=== PATIENT | male | born 1935 | race Caucasian/White ===

== ENCOUNTER 2023-07-30 14:20 | Inpatient (IN) | payer OTHER, SELFPAY ==
[2023-07-30] VITALS (13 sets, daily range): BP systolic 87–109; BP diastolic 35–71; BMI 24.5
--- NOTE | 2023-07-30 09:03 | ED.GENMED ---
History of Present Illness
General
Chief Complaint: Back Pain
Time Seen by Provider: 07/30/23 08:52
Travel History
Have you had any contact with someone who has COVID-19?: No
Do you have any symptoms of coronavirus? Fever > 100 degrees, chills, cough, shortness of breath, sore throat, loss of taste or smell, muscle aches, or headache?: No
History of Present Illness
History of Present Illness:
79-year-old male with history of COPD, coronary artery disease, hypertension, and hyperlipidemia presents to the emergency department for evaluation of generalized weakness. He has fallen several times in the past few days. He is primarily
complaining of right hip and buttock pain after his most recent fall. Son notes that he had 1 episode of vomiting last night and dark urine as of this morning. Patient denies any pain or difficulty breathing. No reported fevers or URI symptoms
recently
Past History
Past History
ED Past Medical History: CAD, COPD, CVA (left sided weakness), GERD, HTN, Hypercholesterolemia, NIDDM, Other (Hepatitis) and Other (PAT, coronary artery disease, hyperlipidemia, skin grafting with faye in 1969)
ED Past Surgical History: Cardiac (CABG), Orthopedic (Hand surgery) and Other (cataracts)
Social History
Tobacco: Former smoker
Alcohol: Occasional
Drug: None
Personal:
Living: with family
Family History
Family History: Hypertension
Review of Systems
Review of Systems
Allergies reviewed?: Yes
All Other Systems: ROS reviewed and negative except as documented in HPI and ROS
Phy Exam
Physical Exam
Physical Exam:
GEN: Well appearing, NAD, WDWN
Eyes: PERRLA, EOMs intact, no scleral icterus
HENT: NCAT, oral mucosa dry
Lungs: Normal respiratory effort, crackles at the right base
Cardiac: RRR, no M/R/G, no peripheral edema. Radial pulses 2+ bilat
Abdomen: S, NT, ND, NABS, no masses or hepatosplenomegaly
Neuro: AO x 3, no focal deficits to BUE/BLE, normal sensation throughout
MSK: No gross deformity or ecchymosis. Bilateral hip range of motion is normal. Reproducible tenderness to the right gluteal region, no deformities
Skin: No rashes, petechiae. Normal color, no pallor or jaundice.
Psych: Calm, cooperative, proper hygiene
Course
Orders/Labs/Results
Orders:
Orders
07/30/23 09:02
CR Hip - RT w/wo Pel 2-3 Vw* Urgent
Comment:
Reason For Exam: fall, gluteal pain
Include a pelvis x-ray?: Yes
07/30/23 09:15
COVID-19 Antigen Urgent
Source: Nasal Swab
Complete Blood Count/With Diff Urgent
Lactic Acid Q4H
Comment: CANCEL 2nd LACTIC ACID IF 1st LACTIC ACID IS LESS THAN 2
Urinalysis Reflex To Culture Urgent
Date Specimen was Collected: 07/30/23
Time Specimen was Collected: 09:07
Urine Microscopic Reflex Cult Urgent
07/30/23 09:18
Prothrombin Time Urgent
Blood Culture Q30M
UMA Source: Blood/Venous
Specimen Description:
Blood Culture Q30M
UMA Source: Blood/Venous
Specimen Description:
07/30/23 09:56
0.9% Sodium Chloride 1000 ml [Nss] 1,000 ml IV BOLUS
07/30/23 10:01
Basic Metabolic Panel Urgent
07/30/23 11:07
CT Chest/abd/pel W Iv Cont Urgent
Comment:
Reason For Exam: sepsis unclear origin
07/30/23 11:36
LevoFLOXacin 750 MG/150 ML [Levaquin] 750 mg in 150 ml IV NOW
07/30/23 12:18
Lactic Acid Q4H
Comment: CANCEL 2nd LACTIC ACID IF 1st LACTIC ACID IS LESS THAN 2
07/30/23 12:22
Potassium Urgent
07/30/23 12:45
0.9% Sodium Chloride 1000 ml [Nss] 1,000 ml IV BOLUS
07/30/23 13:14
Add On- LAB Routine
Tests Added?: LFTs
07/30/23 13:32
Admit/Transfer Patient As Directed
Co-Sign Provider:
Level of Care: Inpatient admission
Assign to:: IMU- Intermediate Care
Physician / Group: stu armando
Diagnosis: sepsis
Reason for Hospitalization: sepsis
Expected length of stay greater than two midnights?: Yes
ELOS- Estimated Length of Stay in days: 3
I certify the patient meets the requirements for IP care: Yes
07/30/23 13:33
Code Status As Directed
Resuscitation Status: Full Code
07/30/23 13:41
Influenza A+B Rapid Molecular Stat
UMA Source: Nasal Swab
Specimen Description:
07/30/23 13:48
NORepinephrine 4 MG/250 ML [Levophed] 4 mg in 250 ml IV PER PROTOCOL
Initial dose in mcg/min, then titrate:: 2
Titrate to keep:: SBP > 90 mmHg
Titrate by mcg/min:: 1-2 mcg/min
Frequency of titrations (minutes):: 5
Maximum dose in ICU in mcg/min:: 30
Maximum dose in IMU in mcg/min:: 8
Maximum dose in IVU in mcg/min:: 4
Begin to taper infusion when:: Remained at goal for 4hrs
Taper by mcg/min:: 1-2 mcg/min
Frequency of taper (minutes) if patient maintains goal:: 30
Taper to off?: Yes
If infusion off & no longer maintaining goal:: Contact Provider
07/30/23 13:52
RSV [Respiratory Syncytial Virus] Stat
UMA Source: Nasal Swab
Specimen Description:
Date Specimen was Collected: 07/30/23
Time Specimen was Collected: 13:51
07/30/23 14:11
B-Hydroxybutyrate Urgent
Comprehensive Metabolic Panel Urgent
Direct Bilirubin Urgent
Procalcitonin Urgent
Abnormal Lab Results
07/30/23 07/30/23 07/30/23
09:15 10:01 12:18
WBC 20.4 H 10^3/uL
(4.8-10.8)
RBC 4.36 L 10^6/uL
(4.70-6.10)
MCH 31.4 H pg
(27.0-31.0)
MPV 11.6 H fL
(7.4-10.4)
Abs Immat Gran (auto) 0.1 H 10^3/uL
(0-0.05)
Absolute Neuts (auto) 19.6 H 10^3/uL
(1.4-6.5)
Absolute Lymphs (auto) 0.2 L 10^3/uL
(1.2-3.4)
Neutrophils % 95.9 H %
(42.2-75.2)
Lymphocytes % 0.9 L %
(20.5-51.1)
Carbon Dioxide 20 L mmol/L
(22-30)
BUN 23 H mg/dl
(9-20)
Glucose 257 H mg/dl
(70-99)
Lactic Acid 3.3 H mmol/L 3.1 H mmol/L
(0.7-2.0) (0.7-2.0)
Urine Ketones Trace A
(Negative)
Urine Bilirubin 2+ A
(Negative)
Urine Urobilinogen 2+ A
(Neg - 1+)
Leukocyte Esterase Rfl Trace A
(Negative)
07/30/23 09:15
Vital Signs
Initial and Last Documented VS:
Initial Vital Signs
Temp Pulse Resp BP Pulse Ox
97.9 F 72 18 96/42 92
07/30/23 08:47 07/30/23 08:47 07/30/23 08:47 07/30/23 08:47 07/30/23 08:47
Last Documented Vital Signs
Temp Pulse Resp BP Pulse Ox
97.9 F 87 26 90/40 98
07/30/23 08:47 07/30/23 13:00 07/30/23 10:01 07/30/23 13:00 07/30/23 13:00
MDM/Problems Addressed
MDM/Problems Addressed:
79-year-old male presenting with generalized weakness and multiple falls. In regards to the fall imaging the pelvis shows no evidence for hip fracture or pelvic ring fracture. He has noted to be tachycardic and hypotensive on arrival although
appears clinically well. Started on IV fluids, CT of the chest abdomen pelvis was obtained to clarify source of sepsis given that the patient is minimally symptomatic, lower lobe infiltrates noted most likely on the basis of pneumonia given the
patient's adventitious lung sounds in addition to leukocytosis. Patient will be admitted for broad-spectrum IV antibiotics and further management
*Critical Care Note
Total Time (30-74mins, 75-104mins- exclusive of procedures): 35 minutes
comment:
Critical care time: 35 minutes
Critical care time was exclusive of: Separately billable procedures, treating other patients, and teaching time
Critical care was necessary to treat or prevent imminent or life-threatening deterioration of the following conditions: Lactic acidosis/severe sepsis
Critical care time spent personally by me on the following activities:
[x] Review of old charts
[x] Obtaining history from patient or surrogate
[x] Ordering and review of the laboratory studies
[x] Ordering and review of radiographic studies
[x] Ordering and performing treatments and interventions
[x] Patient patient's response to treatment
[x] Development of treatment plan with patient or surrogate
ED Attending Note
-
Portions of this chart may have been created with voice recognition software.� Occasional wrong word or��sound alike� substitutions may have occurred due to the inherent limitations of voice recognition software.
Discharge Plan
Departure
Patient Disposition: Admit
Date of Disposition: 07/30/23
Time of Disposition: 12:47
Admit to: IMU
Presentation/result/management discussed w/ accepting MD/DO: Hospitalist
Discharge Problem:
Severe sepsis, Community acquired pneumonia
Interventions
Interventions:
*Risk Screen - Suicide Last Done: 07/30/23 08:47
*General Assessment Last Done: 07/30/23 08:47
*Neglect/Abuse Screening Last Done: 07/30/23 08:47
*ED COVID-19 Vaccine History Last Done: 07/30/23 08:47
ED-Musculoskeletal Assessment Last Done: 07/30/23 10:26
[2023-07-30 09:46] LABS: % Basophils 0.4 % (0-2); % Eosinophils 0.2 % (0-6); % Immature Granulocytes 0.5 % (0-0.5); % Lymphocytes 0.9 % (20.5-51.1); % Monocytes 2.1 % (1.7-9.3); % Neutrophils 95.9 % (42.2-75.2); Absolute Basophils 0.1 10^3/uL (0-0.2); Absolute Immature Granulocytes 0.1 10^3/uL (0-0.05); Absolute Lymphocytes 0.2 10^3/uL (1.2-3.4); Absolute Monocytes 0.4 10^3/uL (0.1-0.6); Absolute Neutrophils 19.6 10^3/uL (1.4-6.5); Hematocrit 40.5 % (39.0-52.0); Hemoglobin 13.7 g/dL (13.0-18.0); Mean Corp Hgb Conc. 33.8 g/dL (33.0-37.0); Mean Corpuscular Hgb 31.4 pg (27.0-31.0); Mean Corpuscular Volume 92.9 fL (80.0-94.0); Mean Platelet Volume 11.6 fL (7.4-10.4); Nucleated Red Blood Cells % 0 % (-); Platelet Count 280 10^3/uL (130-400); Red Blood Cell Count 4.36 10^6/uL (4.70-6.10); White Blood Cell Count 20.4 10^3/uL (4.8-10.8)
[2023-07-30 09:53] LABS: PT 12.4 Sec (11.4-14.6)
[2023-07-30 10:04] LABS: Lactic Acid 3.3 mmol/L (0.7-2.0)
[2023-07-30 10:06] LABS: COVID-19 Antigen Negative (Negative)
[2023-07-30] MEDS: NSS 1000 IV ×3 (10:42→14:56)
[2023-07-30 10:43] LABS: Urine Albumin Trace (Neg - Trace); Urine Bilirubin 2+ (Negative); Urine Character Clear (Clear); Urine Color Brown; Urine Glucose Negative (Negative); Urine Ketone Trace (Negative); Urine Leukocyte Trace (Negative); Urine Nitrite Negative (Negative); Urine Occult Blood Negative (Negative); Urine Urobilinogen 2+ (Neg - 1+)
[2023-07-30 11:20] LABS: Urine Red Blood Cell 0-2 /HPF (0-2); Urine Squamous Cell 0-2 /LPF (Few)
[2023-07-30 11:23] LABS: Blood Urea Nitrogen 23 mg/dl (9-20); Calcium 9.1 mg/dl (8.4-10.2); Carbon Dioxide 20 mmol/L (22-30); Chloride 104 mmol/L (98-107); Estimated Creatinine Clearance 44 ml/min; Glucose 257 mg/dl (70-99); Sodium 136 mmol/L (135-145); eGFR 58.17
[2023-07-30] MEDS: LEVAQUIN 150 IV (11:41)
--- NOTE | 2023-07-30 12:58 | HPS.HSE ---
Addendum entered and electronically signed by Desmond Hernandez DO 07/30/23 14:06:
Patient seen and examined. Discussed with SET DECORATOR Salvatore, and I agree with her note.
Gen-AAOx3, NAD
HEENT-NC, AT, anicteric, clear oral mm
Neck-supple
CV-reg, no M, +S1/S2
Lungs-mild bilateral rhonchi
Abd-soft, NT, ND
Ext-no edema
Musculoskeletal-no cyanosis, clubbing
Skin-warm and dry
Neuro-grossly non-focal
Psych-calm, cooperative
Septic shock - differential diagnosis includes pneumonia versus other. No evidence of UTI. Check procalcitonin. Check blood cultures. COVID-19 negative. Check influenza, RSV. Admit to IMU, start Levophed for hypotension.
CT of chest, abdomen, pelvis shows no acute disease in the abdomen pelvis. Questionable pneumonitis versus pneumonia versus atelectasis in the lungs.
Patient complaining of new onset rust colored sputum over the past 48 hours. Denies shortness of breath or dyspnea on exertion. Denies wheezing. Denies sick contacts.
Suspect he had an episode of post tussive vomiting. Currently denies nausea.
Lactic acidosis noted.
COPD -unclear if acute COPD exacerbation, not wheezing on exam. Does have mild rhonchi. Continue oxygen, inhalers. Add steroids if he develops wheezing.
DM2 with hyperglycemia -suspect mild DKA. Anion gap 12. Urine ketones positive. Check beta hydroxybutyrate. Hemoglobin A1c was 6.1% in May. On metformin at home. Use sliding scale insulin for now. Hold metformin.
CAD/CABG -stable.
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 Continue Plavix.
Essential hypertension -currently hypotensive. Hold losartan.
Hyperlipidemia
Moderate aortic stenosis
GERD/Villafana's esophagus
80% surface area faye -due to work-related accident in the early .
COVID-19 infection - June 2023.
Full code
Ambulatory dysfunction -uses a walker at home. Consult PT/OT.
Original Note:
Family Physician
-
Family Physician: * NONE
Chief Complaint
-
weakness
fall
cough
History of Present Illness
79-year-old male with history of COPD, coronary artery disease, hypertension, and hyperlipidemia presents to the emergency department for evaluation of generalized weakness. He fell twice since . On he fell backwards and landed on
his buttocks. Patient stated he was very dizzy and lightheaded. On Tuesday he fell in between shower and toilet. Denied hitting his head. Patient complaining of right hip pain since the fall. patient denied loss the level of consciousness.
Denied headache. Patient denied chest pain or short of breath. Stated chronic cough which got little worse with the dark brown sputum. Denied abdominal pain. Denied diarrhea. Stated vomited twice. His urine was dark today. Denied dysuria
hematuria.
On arrival noted elevated WBCs, soft BP, elevated lactic acid. CT chest with pneumonia. Patient received a dose of Levaquin in the ER. Fluids in ER. Blood culture sent from ER. Admitting for further management
Medical History
Past Medical History
Past Medical History: Reports Other
Additional Past Medical History:
CAD, COPD, CVA (left sided weakness), GERD, HTN, Hypercholesterolemia, NIDDM, Other (Hepatitis) and Other (PAT, coronary artery disease, hyperlipidemia, skin grafting with faye in 1970
Past Surgical History: Reports Other
Additional Past Surgical History:
Coronary artery bypass graft
Hand surgery
Cataract surgery
Social History
Tobacco: Former Smoker
Alcohol: None
Drug: None
Personal: Single
Living: With Family
Family History
Family History: Not pertinent
Allergies / Home Medications
Allergies reflects when Allergies were last updated in [employer].
Home Medications with original date entered in [employer]
Allergy/Medication List:
Allergies
Allergy/AdvReac Type Severity Reaction Status Date / Time
bacitracin Allergy patient is Verified 12/01/22 20:39
unaware of
this
allergy
cephalexin Allergy patient is Verified 12/01/22 20:39
unaware of
this allerg
Cephalosporins Allergy patient is Verified 12/01/22 20:39
unaware of
this allerg
chloramphenicol Allergy patient is Verified 12/01/22 20:39
unaware of
this allerg
Penicillins Allergy rash? Verified 12/01/22 20:39
polymyxin B Allergy patient is Verified 12/01/22 20:39
unaware of
this allerg
chloramycine Allergy Rash Uncoded 12/01/22 20:39
Home Medications
clopidogrel 75 mg tablet 75 mg PO DAILY 04/16/20
losartan 25 mg tablet 25 mg PO DAILY 04/16/20
pantoprazole 40 mg tablet,delayed release 40 mg PO DAILY 04/16/20
acetaminophen 650 mg tablet,extended release 650 mg PO Q12H 07/30/23
albuterol sulfate 2.5 mg/3 mL (0.083 %) solution for nebulization 2.5 mg inhalation R Q6HPRN PRN shortness of breath or wheezing 07/30/23
metformin 500 mg tablet 1,000 mg PO QPM@1700 07/30/23
Review of Systems
-
Constitutional: Reports No Symptoms
EENT: Reports No Symptoms
Respiratory: Reports Cough
Cardiac: Reports No Symptoms
Abdomen/GI: Reports Vomiting
: Reports No Symptoms
Musculoskeletal: Reports No Symptoms
Skin: Reports No Symptoms
Neurological: Reports Dizzy
Endocrine: Reports No Symptoms
Hematologic/Lymphatic: Reports No Symptoms
Psych: Reports No Symptoms
Physical Exam
Vital Signs
Vital Signs
Temp Pulse Resp BP Pulse Ox
97.9 F 85 26 99/43 89
07/30/23 08:47 07/30/23 12:15 07/30/23 10:01 07/30/23 11:13 07/30/23 11:45
Physical Exam
General: Well Developed, Well Nourished and No Apparent Distress
HEENT: NormoCephalic, Moist mucous membranes and Atraumatic
Respiratory: Clear
Cardiac: S1/S2 and Regular Rhythm; No Murmur or Rub
GI: Soft, Non Tender, Non Distended and Normal Bowel Sounds; No Organomegaly
Rectal: Deferred by Provider
Musculoskeletal: No Clubbing, No Cyanosis and No Edema
Skin: No Rash
Neuro: AO x 3 and Nonfocal/grossly intact
Psych: Calm
Laboratory Results
-
07/30/23 09:15
Laboratory Results
PT 12.4 Sec (11.4-14.6) 07/30/23 09:18
INR 0.90 07/30/23 09:18
Lactic Acid 3.3 mmol/L (0.7-2.0) H 07/30/23 09:15
Total Bilirubin Cancelled 07/30/23 10:01
AST Cancelled 07/30/23 10:01
ALT Cancelled 07/30/23 10:01
Alkaline Phosphatase Cancelled 07/30/23 10:01
Data Reviewed
-
Diagnostic Radiology: Report Reviewed by me
CT Scan: Report Reviewed by me
Lab Data: Labs Reviewed by me
Impression/Plan
-
# Sepsis due to pneumonia
-WBC 20, lactic 3.3
-CT chest/abdomen with pelvis with impression of No acute inflammatory process within the abdomen or pelvis.Mild localized subtle patchy nodular parenchymal opacity in the posterior segment of the left upper lobe and superior segment left lower
lobe. Suspicious for mild pneumonitis.Patchy and confluent opacity in the lung bases, posteriorly, right greater than left. Atelectasis versus pneumonia.
-BP soft in the ER
-Levaquin
-Tylenol as needed for fever
-Blood culture sent from ER
-Fluids continued
-Monitor WBCs
-sputum culture, urine legionella
-procal pending
-covid negative
-flu, rsv pending.
-Trend lactic
# Dizzy, lightheaded, fall likely from dehydration and hypotension
-Blood pressure low in ER
-Obtain orthostatics
-Fluids continued for hydration
-Physical and Occupational Therapy consult
-Hip x-ray with moderate bilateral hip osteoarthritis. Stable.Moderate lower lumbar spine degenerative disease. Stable
-Levophed started in ER due to hypotension
# Coronary artery disease
-Status post coronary bypass graft
-Plavix continued
# History of COPD
-Patient not in acute exacerbation
-Albuterol continued
# History of hypertension
-BP soft in ER
-Hold losartan
# Type 2 diabetes with hyperglycemia
-Sliding scale
-Hold metformin
-Carb controlled diet
# GERD
-PPI continued
# DVT prophylaxis
-Lovenox subcu
# CODE STATUS
-Full code
[2023-07-30 13:00] LABS: Potassium 4.3 mmol/L (3.5-5.1)
[2023-07-30 13:07] LABS: Lactic Acid 3.1 mmol/L (0.7-2.0)
[2023-07-30 16:14] LABS: Glucose - Point of Care 111 mg/dl (70-99)
[2023-07-30 16:45] LABS: ALT (SGPT) 145 U/L (0-50); AST (SGOT) 123 U/L (17-59); Albumin 2.6 g/dl (3.5-5.0); Alkaline Phosphatase 359 U/L (38-126); Blood Urea Nitrogen 24 mg/dl (9-20); Calcium 8.1 mg/dl (8.4-10.2); Carbon Dioxide 23 mmol/L (22-30); Chloride 102 mmol/L (98-107); Direct Bilirubin 2.2 mg/dl (0.0-0.4); Estimated Creatinine Clearance 53 ml/min; Glucose 123 mg/dl (70-99); Sodium 134 mmol/L (135-145); Total Bilirubin 2.7 mg/dl (0.2-1.3); Total Protein 5.1 g/dl (6.3-8.2); eGFR > 60.00
[2023-07-30 16:59] LABS: Procalcitonin 5.74 ng/ml (0.0-0.25)
[2023-07-30 17:05] LABS: B-Hydroxybutyrate 0.06 mmol/L (0.02-0.27)
[2023-07-30 17:12] LABS: Lactic Acid 1.9 mmol/L (0.7-2.0)
[2023-07-30] MEDS: LOVENOX 40 MG SC (18:10)
--- NOTE | 2023-07-30 18:22 | PTCARENOTE ---
Pt rec'd into IMU room 3345 as ED admit. Pt is AOx3 sl forgetful and very [place]. Bed alarmed on. Pt has IV access in right AC, IVF ordered at 80 ml/hr. Pt cannot remember to keep arm straight, no no applied however pt needs both hands to feed and
toilet self, VAT RN contacted to move IV to new site. IVF placed on standby at 18:25. Pt meal tray arrived, bedside glucose 120. Lactic result 1.9, no further draw needed per protocol. Pt oriented to room and plan. Pt verbalizes understanding. Call
lakhani in reach, will cont to monitor.
[2023-07-30 18:33] LABS: Glucose - Point of Care 120 mg/dl (70-99)
[2023-07-30] MEDS: MUCINEX 600 MG PO (20:19)
[2023-07-30 23:51] LABS: Glucose - Point of Care 101 mg/dl (70-99)
[2023-07-31] VITALS (21 sets, daily range): BP systolic 87–131; BP diastolic 35–63; PULSE 72–92; O2SAT 91; BMI 24.9
[2023-07-31] MEDS: NSS 1000 IV ×2 (04:46→18:02)
[2023-07-31 05:32] LABS: Hematocrit 27.9 % (39.0-52.0); Hemoglobin 9.8 g/dL (13.0-18.0); Mean Corp Hgb Conc. 35.1 g/dL (33.0-37.0); Mean Corpuscular Hgb 31.7 pg (27.0-31.0); Mean Corpuscular Volume 90.3 fL (80.0-94.0); Mean Platelet Volume 11.5 fL (7.4-10.4); Platelet Count 153 10^3/uL (130-400); Red Blood Cell Count 3.09 10^6/uL (4.70-6.10); Red Cell Dist. Width 12.9 % (11.5-14.5); White Blood Cell Count 9.5 10^3/uL (4.8-10.8)
[2023-07-31 05:46] LABS: Blood Urea Nitrogen 21 mg/dl (9-20); Calcium 7.8 mg/dl (8.4-10.2); Carbon Dioxide 19 mmol/L (22-30); Chloride 107 mmol/L (98-107); Estimated Creatinine Clearance 53 ml/min; Glucose 91 mg/dl (70-99); Sodium 131 mmol/L (135-145); eGFR > 60.00
[2023-07-31 07:49] LABS: ALT (SGPT) 112 U/L (0-50); AST (SGOT) 68 U/L (17-59); Albumin 2.4 g/dl (3.5-5.0); Alkaline Phosphatase 321 U/L (38-126); Direct Bilirubin 1.1 mg/dl (0.0-0.4); Total Bilirubin 1.5 mg/dl (0.2-1.3); Total Protein 4.7 g/dl (6.3-8.2)
--- NOTE | 2023-07-31 07:59 | W.PN.HOSP.TC ---
Addendum entered and electronically signed by Desmond Hernandez DO 07/31/23 08:10:
More labs are now available:
Elevated LFTs -unclear etiology. Perhaps due to sepsis, shock. Labs trending down. Liver looks unremarkable on CT scan. Gallbladder is absent. No bile duct dilation.
Will continue to trend LFTs.
Hemoglobin is down, 9.8 this morning. Was 13.7 on admission. Suspect due to hemodilution. White blood cell count normalized. Afebrile.
Original Note:
Today's Communication/Plan
-
Check orthostatics
Add midodrine
EKG
Await cultures
PT/OT
Assessment / Plan
Assessment / Plan
Gen-AAOx3, NAD
HEENT-NC, AT, anicteric, clear oral mm
Neck-supple
CV-reg, no M, +S1/S2
Lungs-clear B/L
Abd-soft, NT, ND
Ext-no edema
Musculoskeletal-no cyanosis, clubbing
Skin-warm and dry
Neuro-grossly non-focal
Psych-calm, cooperative
Septic shock - differential diagnosis includes pneumonia versus other.� Still relatively hypotensive, has not required vasopressors so far. Blood pressure 95/39 this morning. Check orthostatics. Will add midodrine.
No evidence of UTI.� Procalcitonin 5.74. Check blood cultures.� COVID-19, RSV, influenza negative.�
CT of chest, abdomen, pelvis shows no acute disease in the abdomen pelvis.� Questionable pneumonitis versus pneumonia versus atelectasis in the lungs.
Patient complaining of new onset rust colored sputum over the past 48 hours.� Denies shortness of breath or dyspnea on exertion.� Denies wheezing.� Denies sick contacts.
Suspect he had an episode of post tussive vomiting.� Currently denies nausea.
Lactic acidosis resolved.
Received a dose of Levaquin on admission, check QTc interval today and if normal will continue Levaquin for now.
COPD -unclear if acute COPD exacerbation, not wheezing on exam.� Does have mild rhonchi.� Continue oxygen, inhalers.� Add steroids if he develops wheezing.
DM2 with hyperglycemia -DKA ruled out. Beta hydroxybutyrate level is normal.� Hemoglobin A1c was 6.1% in May.� On metformin at home.� Use sliding scale insulin for now.� Hold metformin. Glucose 91 this morning.
Hyponatremia -sodium 131 today.
CAD/CABG -stable.
History of stroke -with left hemiparesis.� February 2020.� Continue Plavix.
Essential hypertension -currently hypotensive.� Hold losartan. Family states patient was accidentally taking 50 mg daily, but was prescribed 25 mg daily at home. They believe this was contributing to his dizziness.
Hyperlipidemia
Moderate aortic stenosis
GERD/Villafana's esophagus
80% surface area faye -due to work-related accident in the early .
COVID-19 infection - June 2023.
Full code
Ambulatory dysfunction -uses a walker at home.� Consult PT/OT.
Anticipated Discharge: > 48 hours
Subjective/Interval History
-
Date of Service: July 31, 2023
Patient seen and examined. He feels fine, slept very well, still with cough, denies shortness of breath.
Objective Data
-
Labs:
Laboratory Results
07/31/23
05:00
WBC 9.5
Hgb 9.8 L D
Hct 27.9 L
Plt Count 153 D
Sodium 131 L
Potassium 4.0
Chloride 107
Carbon Dioxide 19 L
BUN 21 H
Creatinine 1.0
Glucose 91
Calcium 7.8 L
Total Bilirubin 1.5 H D
AST 68 H
ALT 112 H
Alkaline Phosphatase 321 H
Vital Signs:
Vital Signs
Temp Pulse Resp BP Pulse Ox
98.4 F 69 20 95/39 90
07/31/23 07:22 07/31/23 06:00 07/31/23 06:00 07/31/23 06:00 07/31/23 06:00
I&O
07/30/23 07/31/23 08/01/23
06:59 06:59 06:59
Intake Total 1260 / 1260
Output Total 350 / 350
Balance 910 / 910
Review of Systems
-
History Source: Patient
All other systems: Reviewed and negative
[2023-07-31] MEDS: PROTONIX 40 MG PO (08:10)
[2023-07-31] MEDS: MUCINEX 600 MG PO ×2 (08:10→20:12)
[2023-07-31] MEDS: PLAVIX 75 MG PO (08:10)
[2023-07-31 08:22] LABS: Glucose - Point of Care 100 mg/dl (70-99)
[2023-07-31] MEDS: LEVAQUIN 150 IV (13:19)
[2023-07-31 13:27] LABS: Glucose - Point of Care 86 mg/dl (70-99)
[2023-07-31 14:45] LABS: Glycohemoglobin (HgbA1c) 6.5 % (4.0-5.6)
[2023-07-31] MEDS: LOVENOX 40 MG SC (17:51)
[2023-07-31 18:16] LABS: Glucose - Point of Care 107 mg/dl (70-99)
--- NOTE | 2023-07-31 20:00 | PTCARENOTE ---
Resumed care of pt laying in bed AAOx3. Pt [place], slightly forgetful at times. HR in the 60's in NSR on the monitor. POX 90-95% on RA. Lungs dec. + bowel, round abd. Pt using bedpan PRN. #25cc in place per pt request draining yellow urine. Palpable
peripheral pulses present. Skin discoloration of B/L LE due to skin grafts, dry flakey skin. Right forarm int infusing IVF as ordered. Pt denies any complaints at this time. Pt positioning self per comfort. Will continue to monitor.
[2023-07-31 21:18] LABS: Glucose - Point of Care 86 mg/dl (70-99)
[2023-08-01] VITALS (17 sets, daily range): BP systolic 102–131; BP diastolic 38–88; BMI 25.3
--- NOTE | 2023-08-01 00:33 | PTCARENOTE ---
POX in the low 80's while sleeping. 2 LO2 NC applied. POX now 95%. Will continue to monitor.
[2023-08-01 05:15] LABS: Hematocrit 28.4 % (39.0-52.0); Hemoglobin 9.6 g/dL (13.0-18.0); Mean Corp Hgb Conc. 33.8 g/dL (33.0-37.0); Mean Corpuscular Hgb 30.9 pg (27.0-31.0); Mean Corpuscular Volume 91.3 fL (80.0-94.0); Mean Platelet Volume 11.6 fL (7.4-10.4); Platelet Count 146 10^3/uL (130-400); Red Blood Cell Count 3.11 10^6/uL (4.70-6.10); Red Cell Dist. Width 12.6 % (11.5-14.5); White Blood Cell Count 6.3 10^3/uL (4.8-10.8)
[2023-08-01 05:41] LABS: ALT (SGPT) 75 U/L (0-50); AST (SGOT) 38 U/L (17-59); Albumin 2.5 g/dl (3.5-5.0); Alkaline Phosphatase 274 U/L (38-126); Blood Urea Nitrogen 16 mg/dl (9-20); Calcium 7.8 mg/dl (8.4-10.2); Carbon Dioxide 21 mmol/L (22-30); Chloride 107 mmol/L (98-107); Estimated Creatinine Clearance 59 ml/min; Glucose 92 mg/dl (70-99); Potassium 3.8 mmol/L (3.5-5.1); Sodium 131 mmol/L (135-145); Total Protein 4.9 g/dl (6.3-8.2); eGFR > 60.00
[2023-08-01 07:39] LABS: Glucose - Point of Care 95 mg/dl (70-99)
[2023-08-01] MEDS: PLAVIX 75 MG PO (08:39)
[2023-08-01] MEDS: MUCINEX 600 MG PO ×2 (08:39→20:00)
[2023-08-01] MEDS: PROTONIX 40 MG PO (08:40)
--- NOTE | 2023-08-01 09:11 | W.PN.HOSP.TC ---
Today's Communication/Plan
-
see bold
Assessment / Plan
Assessment / Plan
Septic shock
-Unclear source at this time, RSV negative, influenza negative, blood cultures are negative, urine analysis not convincing for infection
-CT chest/abdomen/pelvis shows opacity in the lung bases right greater than left, possibly atelectasis versus pneumonia
-Procalcitonin elevated at 5.74, will continue Levaquin
-Blood pressures improved, will change midodrine to as needed instead of scheduled
COPD -unclear if acute COPD exacerbation, not wheezing on exam.� Does have mild rhonchi.� Continue oxygen, inhalers.�
DM2 with hyperglycemia -DKA ruled out. Beta hydroxybutyrate level is normal.� Hemoglobin A1c was 6.1% in May.� On metformin at home.� Use sliding scale insulin for now.� Hold metformin.
Hyponatremia -sodium 131 today.
CAD/CABG -stable.
History of stroke -with left hemiparesis.� February 2020.� Continue Plavix.
Essential hypertension -currently hypotensive.� Hold losartan. Family states patient was accidentally taking 50 mg daily, but was prescribed 25 mg daily at home. They believe this was contributing to his dizziness.
Hyperlipidemia
Moderate aortic stenosis
GERD/Villafana's esophagus
80% surface area faye -due to work-related accident in the early 1970s.
COVID-19 infection - June 2023.
Ambulatory dysfunction -uses a walker at home.� PT/OT - rec SNF vs HH
DVT prophylaxis�subcu Lovenox
Full code
Total time spent to see the patient on the floor, examine the patient, review data and lab results, discuss treatment plan with patient, nursing staff around 51 minutes.
Physical Exam
General: [place] weak, no acute distress
HEENT: Normocephalic, Atraumatic, EOMI, MMM
Respiratory: Clear to Auscultation bilaterally
Cardiac: Normal S1/S2, Regular Rate and Rhythm
GI: Soft, Nontender, Nondistended, Normal Bowel Sounds
Extremities: No Clubbing, Cyanosis, or Edema
Anticipated Discharge: 24 - 48 hours
Subjective/Interval History
-
Date of Service: August 01, 2023
Patient feels weak. Denies coughing, denies shortness of breath. Reports dysuria.
Objective Data
-
Labs:
Laboratory Results
08/01/23
04:49
WBC 6.3
Hgb 9.6 L
Hct 28.4 L
Plt Count 146
Sodium 131 L
Potassium 3.8
Chloride 107
Carbon Dioxide 21 L
BUN 16
Creatinine 0.9
Glucose 92
Calcium 7.8 L
Total Bilirubin 1.0
AST 38
ALT 75 H
Alkaline Phosphatase 274 H
Vital Signs:
Vital Signs
Temp Pulse Resp BP Pulse Ox
98.2 F 60 19 124/45 94
08/01/23 03:15 08/01/23 04:00 08/01/23 04:00 08/01/23 08:39 08/01/23 04:00
I&O
07/31/23 08/01/23 08/02/23
06:59 06:59 06:59
Intake Total 1260 / 1260
Output Total 350 / 350 1325 / 1325
Balance 910 / 910 -1325 / -1325
[2023-08-01] MEDS: LEVAQUIN 150 IV (12:26)
[2023-08-01 12:31] LABS: Glucose - Point of Care 101 mg/dl (70-99)
[2023-08-01] MEDS: SENOKOT-S 2 TABLET PO ×2 (12:50→20:01)
[2023-08-01] MEDS: MIRALAX 17 GRAMS PO (12:50)
--- NOTE | 2023-08-01 12:56 | PTCARENOTE ---
Patient our of bed to chair. Pulse ox on room air is 92% while sitting in chair. Occasional cough with light yellow sputum. Respiratory rate is 25. IV antibiotics continue. Excellent appetite. Patient complaining of constipation, Miralax and Senna
administered. Patient requested a condom catheter during night manager. Madhavi urine is draining. Patient is compliant with plan of care. For PT this afternoon.
--- NOTE | 2023-08-01 16:06 | CM ---
Addendum entered by Cristal Gabriel RN 08/01/23 16:24:
Plan follow up with patient's son/daughter in law re; SNF vs VN.
Original Note:
Patient with Dx Septic shock, concern for COPD exacerbation. Room air. Receiving IV Levaquin. PT & OT recommend SNF vs home with VN. Per nurse assessment; forgetful, [employer].
Met with patient who was too [place] [place] to converse with.
Spoke with patient's son Param, who is POA.
The patient resides with his son Kin and daughter in law Sharri in a 2 story house, with first floor bedroom/bath & 3 + 1 VICENTE.
The patient has been supervised for showering and doing the stairs. He is ambulatory with his RW.
He has been very [place]AND [place] at home and does not use hearing aides.
DME - RW, shower chair, lift chair
VN - prior [facility]
SNF - none
PCP - Delbert Lara
Pharmacy - [facility]
Discussed patient's current functional mobility as per PT/OT; Param would like to discuss SNF vs home with VN with his siblings, especially Param/Sharri that he lives with. Sharri may be easier to reach that Param (ph [phone]).
Plan follow up with patient's son/daughter re; d/c plans.
[2023-08-01] MEDS: LOVENOX 40 MG SC (17:03)
[2023-08-01] MEDS: ProAmatine 5 MG PO (17:03)
[2023-08-01 17:22] LABS: Glucose - Point of Care 101 mg/dl (70-99)
--- NOTE | 2023-08-01 22:33 | PTCARENOTE ---
Assumed care of Pt from day RN. Pt AAOX3 appears to be resting in bed comfortably. Pt has no complaints at this time. call lakhani within reach, assessment care and vitals as documented.
[2023-08-01 22:45] LABS: Glucose - Point of Care 86 mg/dl (70-99)
[2023-08-02] VITALS (18 sets, daily range): BP systolic 93–147; BP diastolic 37–109; PULSE 61; O2SAT 95–97; BMI 24.7
[2023-08-02 04:51] LABS: Hemoglobin 10.4 g/dL (13.0-18.0); Mean Corp Hgb Conc. 34.7 g/dL (33.0-37.0); Mean Corpuscular Hgb 31.2 pg (27.0-31.0); Mean Corpuscular Volume 90.1 fL (80.0-94.0); Mean Platelet Volume 11.3 fL (7.4-10.4); Platelet Count 138 10^3/uL (130-400); Red Blood Cell Count 3.33 10^6/uL (4.70-6.10); Red Cell Dist. Width 12.2 % (11.5-14.5); White Blood Cell Count 4.2 10^3/uL (4.8-10.8)
[2023-08-02 05:18] LABS: Blood Urea Nitrogen 14 mg/dl (9-20); Calcium 8.2 mg/dl (8.4-10.2); Carbon Dioxide 22 mmol/L (22-30); Chloride 103 mmol/L (98-107); Estimated Creatinine Clearance 59 ml/min; Glucose 108 mg/dl (70-99); Potassium 4.1 mmol/L (3.5-5.1); Sodium 133 mmol/L (135-145); eGFR > 60.00
[2023-08-02 07:50] LABS: Glucose - Point of Care 106 mg/dl (70-99)
[2023-08-02] MEDS: PROTONIX 40 MG PO (08:32)
[2023-08-02] MEDS: SENOKOT-S 2 TABLET PO ×2 (08:32→20:29)
[2023-08-02] MEDS: ProAmatine 5 MG PO ×3 (08:32→17:39)
[2023-08-02] MEDS: MUCINEX 600 MG PO ×2 (08:32→20:29)
[2023-08-02] MEDS: MIRALAX 17 GRAMS PO (08:32)
[2023-08-02] MEDS: PLAVIX 75 MG PO (08:32)
--- NOTE | 2023-08-02 08:38 | W.PN.HOSP.TC ---
Today's Communication/Plan
-
see bold
Assessment / Plan
Assessment / Plan
Septic shock
Probable pneumonia
-Unclear source at this time, RSV negative, influenza negative, blood cultures are negative, urine analysis not convincing for infection
-CT chest/abdomen/pelvis shows opacity in the lung bases right greater than left, possibly atelectasis versus pneumonia
-Procalcitonin elevated at 5.74, will continue Levaquin. Sputum Gram stain shows over contamination
-Blood pressures improved, midodrine reduced to 5 mg TID
-PT rec HH vs SNF, patient agreeable for SNF
Acute hypoxic respiratory insufficiency
-Currently requiring 2 L of oxygen, wean as tolerated
COPD -unclear if acute COPD exacerbation, not wheezing on exam.� Does have mild rhonchi.� Continue oxygen, inhalers.�
DM2 with hyperglycemia -DKA ruled out. Beta hydroxybutyrate level is normal.� Hemoglobin A1c was 6.1% in May.� On metformin at home.� Use sliding scale insulin for now.� Hold metformin.
Hyponatremia -sodium 133 today.
CAD/CABG -stable.
History of stroke -with left hemiparesis.� February 2020.� Continue Plavix.
Essential hypertension -currently hypotensive.� Hold losartan. Family states patient was accidentally taking 50 mg daily, but was prescribed 25 mg daily at home. They believe this was contributing to his dizziness.
Hyperlipidemia
Moderate aortic stenosis
GERD/Villafana's esophagus
80% surface area faye -due to work-related accident in the early 1970s.
COVID-19 infection - June 2023.
Ambulatory dysfunction -uses a walker at home.� PT/OT
DVT prophylaxis�subcu Lovenox
Full code
Physical Exam
General: Apears weak, no acute distress
HEENT: Normocephalic, Atraumatic, EOMI, MMM
Respiratory: Clear to Auscultation bilaterally
Cardiac: Normal S1/S2, Regular Rate and Rhythm
GI: Soft, Nontender, Nondistended, Normal Bowel Sounds
Extremities: No Clubbing, Cyanosis, or Edema
Anticipated Discharge: 24 - 48 hours
Subjective/Interval History
-
Date of Service: August 02, 2023
Denies shortness of breath.
Objective Data
-
Labs:
Laboratory Results
08/02/23
04:21
WBC 4.2 L
Hgb 10.4 L
Hct 30.0 L
Plt Count 138
Sodium 133 L
Potassium 4.1
Chloride 103
Carbon Dioxide 22
BUN 14
Creatinine 0.9
Glucose 108 H
Calcium 8.2 L
Vital Signs:
Vital Signs
Temp Pulse Resp BP Pulse Ox
98.0 F 79 15 113/41 96
08/02/23 07:18 08/02/23 08:32 08/02/23 06:00 08/02/23 08:32 08/02/23 06:00
I&O
08/01/23 08/02/23 08/03/23
06:59 06:59 06:59
Intake Total 880 / 880
Output Total 1325 / 1325 1350 / 1350
Balance -1325 / -1325 -470 / -470
--- NOTE | 2023-08-02 10:22 | CM ---
Addendum entered by Cristal Gabriel RN 08/02/23 10:48:
Received callback from son Param; he spoke with his father and they now want SNF for rehab. Param says the patient was told by Dr Whalen that he needed SNF for rehab, so they have agreed. Son prefers [facility] [place] [facility].
Message from Dr Whalen; patient may be ready for d/c on 08/04/23.
SNF referrals placed.
Plan follow up SNF referrals.
Original Note:
Patient with Dx Septic shock, concern for COPD exacerbation. Room air. Receiving IV Levaquin. PT & OT recommend SNF vs home with VN. Per nurse assessment; PHILIP rodriguez.
Spoke with lola Virgen; he discussed d/c plans with his brother Kin/sister in law Sharri and they would like the patient to return home. Sharri did not like [facility] VN that they had previously - they are now choosing [facility]. Offered caregiver list for
the hours when family is not at home to assist the patient. Param agrees to receive the Caregiver list to his email, sent to---> [email or web address]. The children want to be the contact for VN as the [place] is [place].
Referral to [facility].
Plan home with [facility].
[2023-08-02 12:01] LABS: Glucose - Point of Care 108 mg/dl (70-99)
[2023-08-02] MEDS: LEVAQUIN 150 IV (12:45)
[2023-08-02 16:34] LABS: Glucose - Point of Care 99 mg/dl (70-99)
[2023-08-02] MEDS: LOVENOX 40 MG SC (17:39)
[2023-08-02 21:34] LABS: Glucose - Point of Care 96 mg/dl (70-99)
[2023-08-03] VITALS (9 sets, daily range): BP systolic 98–139; BP diastolic 43–88
--- NOTE | 2023-08-03 01:58 | PTCARENOTE ---
Assumed care of Pt from day RN. Pt AAOx3 YAVAPAI-APACHE. Pt expressed that he is glad to be going to a rehab. Assessment care and vitals as charted.
[2023-08-03 05:03] LABS: Hematocrit 35.2 % (39.0-52.0); Hemoglobin 11.8 g/dL (13.0-18.0); Mean Corp Hgb Conc. 33.5 g/dL (33.0-37.0); Mean Corpuscular Hgb 31.1 pg (27.0-31.0); Mean Corpuscular Volume 92.6 fL (80.0-94.0); Mean Platelet Volume 11.5 fL (7.4-10.4); Platelet Count 156 10^3/uL (130-400); Red Cell Dist. Width 12.3 % (11.5-14.5); White Blood Cell Count 4.3 10^3/uL (4.8-10.8)
[2023-08-03 05:32] LABS: Blood Urea Nitrogen 13 mg/dl (9-20); Calcium 8.9 mg/dl (8.4-10.2); Carbon Dioxide 23 mmol/L (22-30); Chloride 101 mmol/L (98-107); Estimated Creatinine Clearance 53 ml/min; Glucose 110 mg/dl (70-99); Potassium 4.3 mmol/L (3.5-5.1); Sodium 134 mmol/L (135-145); eGFR > 60.00
--- NOTE | 2023-08-03 08:00 | W.PN.HOSP.TC ---
Today's Communication/Plan
-
Discharge to short-term rehab tomorrow
Assessment / Plan
Assessment / Plan
Septic shock
Probable pneumonia
-Unclear source at this time, RSV negative, influenza negative, blood cultures are negative, urine analysis not convincing for infection
-CT chest/abdomen/pelvis shows opacity in the lung bases right greater than left, possibly atelectasis versus pneumonia
-Procalcitonin elevated at 5.74, will continue Levaquin. Sputum Gram stain shows over contamination
-Blood pressures improved, midodrine reduced to 2.5 mg TID
-PT rec HH vs SNF, patient agreeable for SNF
-Discharge to short-term rehab tomorrow
Acute hypoxic respiratory insufficiency
-Resolved, now on room air, down from 2 L of oxygen
COPD -unclear if acute COPD exacerbation, not wheezing on exam.� Does have mild rhonchi.� Continue oxygen, inhalers.�
DM2 with hyperglycemia -DKA ruled out. Beta hydroxybutyrate level is normal.� Hemoglobin A1c was 6.1% in May.� On metformin at home.� Use sliding scale insulin for now.� Hold metformin -can resume upon discharge
Hyponatremia -sodium 134 today.
CAD/CABG -stable.
History of stroke -with left hemiparesis.� February 2020.� Continue Plavix.
Essential hypertension -currently hypotensive.� Hold losartan. Family states patient was accidentally taking 50 mg daily, but was prescribed 25 mg daily at home. They believe this was contributing to his dizziness.
Hyperlipidemia
Moderate aortic stenosis
GERD/Villafana's esophagus
80% surface area faye -due to work-related accident in the early 1970s.
COVID-19 infection - June 2023.
Ambulatory dysfunction -uses a walker at home.� PT/OT
DVT prophylaxis�subcu Lovenox
Full code
Physical Exam
General: Apears weak, no acute distress
HEENT: Normocephalic, Atraumatic, EOMI, MMM
Respiratory: Clear to Auscultation bilaterally
Cardiac: Normal S1/S2, Regular Rate and Rhythm
GI: Soft, Nontender, Nondistended, Normal Bowel Sounds
Extremities: No Clubbing, Cyanosis, or Edema
Anticipated Discharge: Within 24 hours
Subjective/Interval History
-
Date of Service: August 03, 2023
Continues to improve.
Objective Data
-
Labs:
Laboratory Results
08/03/23
04:37
WBC 4.3 L
Hgb 11.8 L
Hct 35.2 L
Plt Count 156
Sodium 134 L
Potassium 4.3
Chloride 101
Carbon Dioxide 23
BUN 13
Creatinine 1.0
Glucose 110 H
Calcium 8.9
Vital Signs:
Vital Signs
Temp Pulse Resp BP Pulse Ox
98.3 F 56 13 114/46 97
08/02/23 23:08 08/03/23 06:41 08/03/23 06:41 08/03/23 06:41 08/03/23 04:21
I&O
08/02/23 08/03/23 08/04/23
06:59 06:59 06:59
Intake Total 880 / 880 720 / 720
Output Total 1350 / 1350 1550 / 1550
Balance -470 / -470 -830 / -830
[2023-08-03] MEDS: ProAmatine 5 MG PO (08:07)
[2023-08-03] MEDS: PROTONIX 40 MG PO (08:07)
[2023-08-03] MEDS: SENOKOT-S 2 TABLET PO ×2 (08:07→20:16)
[2023-08-03] MEDS: MUCINEX 600 MG PO ×2 (08:07→20:16)
[2023-08-03] MEDS: PLAVIX 75 MG PO (08:07)
[2023-08-03] MEDS: MIRALAX PO (08:08)
[2023-08-03 08:11] LABS: Glucose - Point of Care 102 mg/dl (70-99)
[2023-08-03] MEDS: MIRALAX 17 GRAMS PO (08:12)
[2023-08-03 11:38] LABS: Glucose - Point of Care 93 mg/dl (70-99)
[2023-08-03] MEDS: LEVAQUIN 750 MG PO (12:56)
[2023-08-03] MEDS: ProAmatine 2.5 MG PO ×2 (12:56→17:53)
[2023-08-03] MEDS: LEVAQUIN IV (13:03)
--- NOTE | 2023-08-03 16:33 | CM ---
Patient with Dx Septic shock, concern for COPD exacerbation. Room air. PT recommends skilled rehab. OT recommends Home OT vs SNF.
Message from [facility]; they are able to accept the patient tomorrow once insurance approves.
Spoke with patient's son Param and provided update [facility] will have a bed available tomorrow.
Spoke with [facility]; their systems are down and cannot take an auth request now.
Request for SNF initiated through [employer] Portal- Reference Number [id number]. Clinicals faxed to [phone] via [employer] Fax.
Plan [facility] tomorrow once insurance auth obtained.
[2023-08-03 17:18] LABS: Glucose - Point of Care 97 mg/dl (70-99)
[2023-08-03] MEDS: LOVENOX 40 MG SC (17:52)
[2023-08-03 21:44] LABS: Glucose - Point of Care 104 mg/dl (70-99)
[2023-08-04 03:14] VITALS: BP 106/61
[2023-08-04 05:23] LABS: Hematocrit 33.9 % (39.0-52.0); Hemoglobin 11.4 g/dL (13.0-18.0); Mean Corp Hgb Conc. 33.6 g/dL (33.0-37.0); Mean Corpuscular Hgb 31.1 pg (27.0-31.0); Mean Corpuscular Volume 92.4 fL (80.0-94.0); Mean Platelet Volume 11.5 fL (7.4-10.4); Platelet Count 159 10^3/uL (130-400); Red Blood Cell Count 3.67 10^6/uL (4.70-6.10); Red Cell Dist. Width 12.4 % (11.5-14.5); White Blood Cell Count 4.7 10^3/uL (4.8-10.8)
[2023-08-04 05:47] LABS: Blood Urea Nitrogen 12 mg/dl (9-20); Calcium 8.6 mg/dl (8.4-10.2); Carbon Dioxide 24 mmol/L (22-30); Chloride 101 mmol/L (98-107); Estimated Creatinine Clearance 53 ml/min; Glucose 108 mg/dl (70-99); Potassium 3.9 mmol/L (3.5-5.1); Sodium 135 mmol/L (135-145); eGFR > 60.00
--- NOTE | 2023-08-04 07:11 | W.PN.HOSP.TC ---
Today's Communication/Plan
-
Discharge to rehab today
Assessment / Plan
Assessment / Plan
Septic shock
Probable pneumonia
-Unclear source at this time, RSV negative, influenza negative, blood cultures are negative, urine analysis not convincing for infection
-CT chest/abdomen/pelvis shows opacity in the lung bases right greater than left, possibly atelectasis versus pneumonia
-Procalcitonin elevated at 5.74, will continue Levaquin. Sputum Gram stain shows over contamination
-Blood pressures improved, will stop midodrine 2.5 mg TID
-Medically stable for discharge to short-term rehab today, continue Levaquin for 2 more days upon discharge to complete a 7-day course
Acute hypoxic respiratory insufficiency
-Resolved, now on room air, down from 2 L of oxygen
COPD -unclear if acute COPD exacerbation, not wheezing on exam.� Does have mild rhonchi.� Continue oxygen, inhalers.�
DM2 with hyperglycemia -DKA ruled out. Beta hydroxybutyrate level is normal.� Hemoglobin A1c was 6.1% in May.� On metformin at home.� Use sliding scale insulin for now.� Hold metformin -can resume upon discharge
Hyponatremia -sodium 134 today.
CAD/CABG -stable.
History of stroke -with left hemiparesis.� February 2020.� Continue Plavix.
Essential hypertension -currently hypotensive.� Hold losartan. Permanently discontinue losartan
Hyperlipidemia
Moderate aortic stenosis
GERD/Villafana's esophagus
80% surface area faye -due to work-related accident in the early 1970s.
COVID-19 infection - June 2023.
Ambulatory dysfunction -uses a walker at home.� PT/OT
DVT prophylaxis�subcu Lovenox
Full code
Physical Exam
General: Apears weak, no acute distress
HEENT: Normocephalic, Atraumatic, EOMI, MMM
Respiratory: Clear to Auscultation bilaterally
Cardiac: Normal S1/S2, Regular Rate and Rhythm
GI: Soft, Nontender, Nondistended, Normal Bowel Sounds
Extremities: No Clubbing, Cyanosis, or Edema
Anticipated Discharge: Today
Subjective/Interval History
-
Date of Service: August 04, 2023
Coughing improved, denies shortness of breath.
Objective Data
-
Labs:
Laboratory Results
08/04/23
04:31
WBC 4.7 L
Hgb 11.4 L
Hct 33.9 L
Plt Count 159
Sodium 135
Potassium 3.9
Chloride 101
Carbon Dioxide 24
BUN 12
Creatinine 1.0
Glucose 108 H
Calcium 8.6
Vital Signs:
Vital Signs
Temp Pulse Resp BP Pulse Ox
98.1 F 62 16 106/61 93
08/04/23 03:14 08/04/23 03:14 08/04/23 03:14 08/04/23 03:14 08/04/23 03:14
I&O
08/03/23 08/04/23 08/05/23
06:59 06:59 06:59
Intake Total 720 / 720 700 / 700
Output Total 1550 / 1550 425 / 425
Balance -830 / -830 275 / 275
[2023-08-04 07:47] VITALS: BP 127/48
[2023-08-04 07:49] LABS: Glucose - Point of Care 101 mg/dl (70-99)
[2023-08-04] MEDS: MIRALAX 17 GRAMS PO (08:05)
[2023-08-04] MEDS: LEVAQUIN 750 MG PO (08:05)
[2023-08-04] MEDS: MUCINEX 600 MG PO (08:06)
[2023-08-04] MEDS: PLAVIX 75 MG PO (08:07)
[2023-08-04] MEDS: ProAmatine 2.5 MG PO ×2 (08:08→12:51)
[2023-08-04] MEDS: PROTONIX 40 MG PO (08:09)
[2023-08-04] MEDS: SENOKOT-S PO (08:10)
--- NOTE | 2023-08-04 09:47 | CM ---
Addendum entered by Diamond Gonzalez RN 08/04/23 14:02:
Patient's daughter Effie ([phone]) to transport patient to [facility].
Addendum entered by Diamond Gonzalez RN 08/04/23 10:21:
Auth for 08/04-08/06 for Subacute Level II # [id number]
NRD 08/08 with Kylie pittman ([phone]); fax ([phone])
Original Note:
Reviewed the chart notes and spoke with the patient at the bedside. IMM signed and placed on the chart. Precert started for [facility]. Awaiting authorization for SNF stay. CM continues to be available to patient/family and is monitoring medical plan
for needs at discharge.
Plan: Discharge to [facility] when auth obtained.
Call report to: [phone]
Fax report to: [phone]
[2023-08-04 11:15] LABS: Glucose - Point of Care 101 mg/dl (70-99)
[2023-08-04 11:19] VITALS: BP 148/54
--- NOTE | 2023-08-04 12:21 | W.DCSUMMARY ---
Discharge Summary
Discharge Data
Date of Admission: 07/30/23
Date of Discharge: 08/04/23
-
Pending Results: No
Hospital Course
Primary diagnosis:
Septic shock
Presumed pneumonia
Acute hypoxic respiratory insufficiency
Hyponatremia
Secondary diagnosis:
Chronic obstructive pulmonary disease
Type 2 diabetes with hyperglycemia
History of stroke with left hemiparesis
Coronary artery disease status post surgery
Moderate aortic stenosis
Hyperlipidemia
Gastroesophageal reflux disease/Villafana's esophagus
80% body surface area faye from work-related accident in the early 1970s
CT Chest/Abd/Pelvis:
No acute inflammatory process within the abdomen or pelvis.
Mild localized subtle patchy nodular parenchymal opacity in the posterior segment of the left upper lobe and superior segment left lower lobe. Suspicious for mild pneumonitis.
Patchy and confluent opacity in the lung bases, posteriorly, right greater than left. Atelectasis versus pneumonia.
Hospital Course:
79-year-old male with history of COPD, coronary artery disease, hypertension, and hyperlipidemia presents to the emergency department for evaluation of generalized weakness. Patient was found to have septic shock with presumed pneumonia. Chest CT
results noted as above. Procalcitonin 5.74. He was COVID-negative, influenza negative. Sputum cultures showed over contamination. He was hypotensive, his home losartan was held.
He was treated with IV fluids, Levaquin, and midodrine 10 mg 3 times a day. After several days, his blood pressure improved, he was weaned to midodrine 5 mg 3 times a day.
Patient had a cough. He denied overt shortness of breath. He was hypoxic, requiring 2 L of oxygen. He was successfully weaned off of oxygen.
Patient's blood pressure continued to improve. His midodrine was further weaned to 2.5 mg 3 times a day, and subsequently discontinued upon discharge. His losartan is permanently discontinued due to his soft blood pressure.
Patient was seen conjunction with PT, who recommends home health versus short-term rehab. Patient lives with his family, who is working much of the time. He was agreeable to short-term rehab.
He is medically stable for discharge to short-term rehab. He will be discharged on Levaquin for an additional 2 days, to complete a 7-day course. He needs to follow-up with his primary care doctor in 1 week.
Disposition: Short-term rehab
Discharge planning: Required 37 minutes
Discharge Plan
-
Patient Disposition: Custodial/SNF
Discharge Diagnosis/Procedures: Septic shock, presumed pneumonia, acute hypoxic respiratory insufficiency, chronic obstructive pulmonary disease, type 2 diabetes with hyperglycemia, hyponatremia, history of stroke with residual left-sided weakness,
moderate aortic stenosis
Condition: Fair
Diet: Diabetic, Carb Controlled
Activity: As tolerated
Activity Restrictions/Additional Instructions:
Please take levofloxacin daily for an additional 2 days.
Please follow-up with your primary care doctor in 1 week.
Referrals:
NONE,* [Family Provider] -
Prescriptions:
New
polyethylene glycol 3350 [HealthyLax] 17 gram Powder In Packet
17 g PO DAILY Qty: 0 0RF
guaifenesin 600 mg Tablet Extended Release 12hr
600 mg PO Q12 Qty: 0 0RF
levofloxacin 750 mg Tablet
750 mg PO DAILY 2 Days Qty: 2 0RF
Continued
clopidogrel 75 MG tablet
75 mg PO DAILY
pantoprazole 40 MG tablet,delayed release (DR/EC)
40 mg PO DAILY
albuterol sulfate 2.5 mg /3 mL (0.083 %) solution for nebulization
2.5 mg inhalation R Q6HPRN PRN (Reason: shortness of breath or wheezing)
metformin 500 mg Tablet
1,000 mg PO QPM@1700
acetaminophen 650 mg Tablet Extended Release
650 mg PO Q12H
Discontinued
losartan 25 MG tablet
25 mg PO DAILY
Discharge Orders:
Discharge Patient (As Directed); Ordered 08/04/23
Ordered By: Adin Do
Discharge Date and Time
Discharge Date/Time: 08/04/23 15:09
[2023-08-04 12:48] VITALS: BP 119/41
--- NOTE | 2023-08-04 14:12 | PTCARENOTE ---
Patients pulse ox was taken at 1119 the reading was 90% Room Air after ambulating around the room 3 times under supervision of one staff member for safety. Patient did not complain of SOB or discomfort, then resting quietly in bed. Patient was
reassessed at 1155 and the pulse ox read 98% Room Air. Reported to attending RN.
--- NOTE | 2023-08-04 15:11 | PTCARENOTE ---
Patient D/C as ordered to [facility]. report given to [facility]. Left hospital with his daughter via wheelchair. Iv and condom cath removed. no s/s of distress noted.
== END 2023-08-04 15:09 | DRG 871 ==
LOC: 2 NORTH 14:20
PROVIDERS: Physician Assistant; Registered Nurse; ADMITTING PHYSICIAN Hospitalist; ATTENDING PHYSICIAN Family Medicine; EMERGENCY PHYSICIAN Emergency Medicine
DX: A41.9 Sepsis, unspecified organism (principal); J18.9 Pneumonia, unspecified organism; R65.21 Severe sepsis with septic shock; E87.20 Acidosis, unspecified; J44.0 Chronic obstructive pulmonary disease with (acute) lower respiratory infection; E87.1 Hypo-osmolality and hyponatremia; Z87.891 Personal history of nicotine dependence; Z11.52 Encounter for screening for COVID-19; I10 Essential (primary) hypertension; I35.0 Nonrheumatic aortic (valve) stenosis; K21.9 Gastro-esophageal reflux disease without esophagitis; K22.70 Barrett's esophagus without dysplasia; I25.10 Atherosclerotic heart disease of native coronary artery without angina pectoris; E78.00 Pure hypercholesterolemia, unspecified; E11.65 Type 2 diabetes mellitus with hyperglycemia; R09.02 Hypoxemia; R06.89 Other abnormalities of breathing
CPT/HCPCS: 71260; 73502; 74177; 80048; 80053; 81003; 81015; 82010; 82248; 82962; 83036; 83605; 83735; 84132; 84145; 85025; 85027; 85610; 87040; 87205; 87449; 87502; 87807; 87811; 87899; 93005; 96361; 96374; 97116; 97162; 97166; 97530; 97535; 99291; Q9967

== ENCOUNTER → 2023-08-08 11:07 | Outpatient (REF) | payer OTHER, SELFPAY ==
[2023-08-08 11:30] LABS: % Basophils 0.4 % (0-2); % Eosinophils 3.5 % (0-6); % Immature Granulocytes 1.4 % (0-0.5); % Monocytes 6.8 % (1.7-9.3); % Neutrophils 79.9 % (42.2-75.2); Absolute Eosinophils 0.2 10^3/uL (0-0.7); Absolute Immature Granulocytes 0.1 10^3/uL (0-0.05); Absolute Lymphocytes 0.4 10^3/uL (1.2-3.4); Absolute Monocytes 0.4 10^3/uL (0.1-0.6); Absolute Neutrophils 4.1 10^3/uL (1.4-6.5); Hematocrit 35.5 % (39.0-52.0); Hemoglobin 11.8 g/dL (13.0-18.0); Mean Corp Hgb Conc. 33.2 g/dL (33.0-37.0); Mean Corpuscular Hgb 31.4 pg (27.0-31.0); Mean Corpuscular Volume 94.4 fL (80.0-94.0); Nucleated Red Blood Cells % 0 % (-); Platelet Count 149 10^3/uL (130-400); Red Blood Cell Count 3.76 10^6/uL (4.70-6.10); Red Cell Dist. Width 13.2 % (11.5-14.5); White Blood Cell Count 5.1 10^3/uL (4.8-10.8)
[2023-08-08 11:38] LABS: Blood Urea Nitrogen 15 mg/dl (9-20); Calcium 8.5 mg/dl (8.4-10.2); Carbon Dioxide 22 mmol/L (22-30); Chloride 100 mmol/L (98-107); Glucose 95 mg/dl (70-99); Potassium 4.1 mmol/L (3.5-5.1); Sodium 134 mmol/L (135-145); eGFR > 60.00
== END ==
LOC: OLABP 11:07
PROVIDERS: ATTENDING PHYSICIAN Family Medicine
DX: I11.9 Hypertensive heart disease without heart failure (principal); J44.9 Chronic obstructive pulmonary disease, unspecified; E78.5 Hyperlipidemia, unspecified; I35.0 Nonrheumatic aortic (valve) stenosis; K21.9 Gastro-esophageal reflux disease without esophagitis; J18.9 Pneumonia, unspecified organism; A41.9 Sepsis, unspecified organism; M62.81 Muscle weakness (generalized); R26.2 Difficulty in walking, not elsewhere classified; I69.354 Hemiplegia and hemiparesis following cerebral infarction affecting left non-dominant side; H91.90 Unspecified hearing loss, unspecified ear
CPT/HCPCS: 36415; 80048; 85025

== ENCOUNTER → 2023-09-16 10:09 | Outpatient (REF) | payer OTHER, SELFPAY | LOC: RAD 10:09 | PROVIDERS: ATTENDING PHYSICIAN Internal Medicine | DX: Z09 Encounter for follow-up examination after completed treatment for conditions other than malignant neoplasm (principal) | CPT/HCPCS: 71046 ==